=== PATIENT | female | born 1945 | race Caucasian/White ===

== ENCOUNTER 2020-07-15 13:56 | Day surgery (SDC) | payer MEDICARE, OTHER ==
[~2020-07-15 13:56] MED LIST: BALANCED SALT IRRIG SOLN COMB2 15 ML BOTTLE ONE; KETOROLAC TROMETHAMINE 0.45% 4 DROP/0.4 ML DROPERETTE OD PRN; LIDOCAINE 1%/EPINEPHRINE INJ 20 ML VIAL ONE; MITOMYCIN OPH SOLN 0.02% 2 ML OD PRN; POVIDONE-IODINE 5% OPH PREP SOLN 30 ML ONE; TETRACAINE HCL 0.5% OPH SOLN 4 ML ONE; TOBRAMYCIN SULFATE/DEXAMETH OPH OINTMENT 3.5 GM ONE
[2020-07-15] MEDS ORDERED: FENTANYL CITRATE INJ/PF 100 MCG/2 ML AMPUL ONE (14:16)
[2020-07-15] MEDS ORDERED: ONDANSETRON HCL INJ/PF 4 MG/2 ML SDV ONE (14:16)
[2020-07-15] MEDS ORDERED: MIDAZOLAM 2 MG/2 ML INJ ONE (14:16)
[2020-07-15] MEDS: BESIFLOXACIN HCL 0.6% OPH SUSP 5 ML BOTTLE OD PRN ×3 (15:05→16:21)
[2020-07-15] MEDS: TETRACAINE HCL 0.5% OPH SOLN 4 ML OD PRN ×2 (15:28→15:35)
[2020-07-15] MEDS ORDERED: BALANCED SALT IRRIG SOLN COMB2 15 ML BOTTLE ONE (15:38)
[2020-07-15] MEDS ORDERED: LIDOCAINE 1%/EPINEPHRINE INJ 20 ML VIAL ONE (15:41)
--- NOTE | 2020-07-15 16:40 | Operative Report ---
Operative Report-[facility] Operative Report: DATE OF SURGERY: July 15, 2020 PREOPERATIVE DIAGNOSIS: Pterygium, RIGHT EYE. POSTOPERATIVE DIAGNOSIS: Pterygium, RIGHT EYE. PROCEDURE PERFORMED: Pterygium excision of the right eye with mitomycin-C and amniotic membrane graft SURGEON: Nick Moran, MEDICATIONS AND ANESTHESIA: Versed: IV Versed Tetracaine drops: 1 to 2 drops given as needed COMPLICATION: [None] INDICATIONS FOR SURGERY: The pterygium was aggressively approaching the pupillary margin PROCEDURE: Consent: The risks, benefits and alternatives of this procedures was discussed with the patient. The patient read and signed the consent forms, was identified and was seated in the exam chair. The face was prepped with 5% povidone iodine solution, and a few drops of 5% povidone iodine solution was instilled into the inferior fornix. A non- fenestrated drape was placed over the eye and the lids were parted with the speculum. The pterygium was removed, mitomycin C was placed over the bare conjunctive for approximately 2 minutes then irrigated, next an amniotic membrane graft was glued over the bare sclera Postop medication: 1 drop of Besivance followed by TobraDex ointment intraoperative
== END 2020-07-15 16:55 ==
LOC: SC 13:56
PROVIDERS: ATTEND Ophthalmology
DX: H11.001 Unspecified pterygium of right eye (principal); I10 Essential (primary) hypertension; E78.00 Pure hypercholesterolemia, unspecified; E07.9 Disorder of thyroid, unspecified; R01.1 Cardiac murmur, unspecified
CPT/HCPCS: 65426; J2250; J3490 ×4; A9270 ×2; J3010; J2405; J9280; 88304; C9250

== ENCOUNTER 2020-07-22 13:17 | Day surgery (SDC) | payer MEDICARE, OTHER ==
[~2020-07-22 13:17] MED LIST changes: -KETOROLAC TROMETHAMINE 0.45% 4 DROP/0.4 ML DROPERETTE OD PRN; +KETOROLAC TROMETHAMINE 0.45% 4 DROP/0.4 ML DROPERETTE OS PRN; -MITOMYCIN OPH SOLN 0.02% 2 ML OD PRN; +MITOMYCIN OPH SOLN 0.02% 2 ML OP PRN; -TETRACAINE HCL 0.5% OPH SOLN 4 ML ONE; +TETRACAINE HCL 0.5% OPH SOLN 4 ML OS PRN
[2020-07-22] MEDS ORDERED: MIDAZOLAM 2 MG/2 ML INJ ONE (13:25)
[2020-07-22] MEDS ORDERED: FENTANYL CITRATE INJ/PF 100 MCG/2 ML AMPUL ONE (13:25)
[2020-07-22] MEDS ORDERED: ONDANSETRON HCL INJ/PF 4 MG/2 ML SDV ONE (13:25)
[2020-07-22] MEDS: BESIFLOXACIN HCL 0.6% OPH SUSP 5 ML BOTTLE OS PRN ×3 (14:00→15:10)
[2020-07-22] MEDS ORDERED: BALANCED SALT IRRIG SOLN COMB2 15 ML BOTTLE ONE (14:08)
[2020-07-22] MEDS: TETRACAINE HCL 0.5% OPH SOLN 4 ML ONE ×2 (14:30→14:39)
[2020-07-22] MEDS ORDERED: TOBRAMYCIN SULFATE/DEXAMETH OPH OINTMENT 3.5 GM ONE (15:16)
--- NOTE | 2020-07-22 15:25 | Operative Report ---
Operative Report-[facility] Operative Report: DATE OF SURGERY: July 22, 2020 PREOPERATIVE DIAGNOSIS: Pterygium, LEFT EYE. POSTOPERATIVE DIAGNOSIS: Kellen M, LEFT EYE. PROCEDURE PERFORMED: Excision of pterygium and amniotic membrane transplant, LEFT EYE. SURGEON: Nick Moran, MEDICATIONS AND ANESTHESIA: Versed: IV Versed Tetracaine drops: 1 to 2 drops given as needed COMPLICATION: [None] INDICATIONS FOR SURGERY: The pterygium was in the visual axis PROCEDURE: Consent: The risks, benefits and alternatives of this procedures was discussed with the patient. The patient read and signed the consent forms, was identified and was seated in the exam chair. Phacoemulsification with posterior chamber intraocular lens implant: The face w as prepped with 5% povidone iodine solution, and a few drops of 5% povidone iodine solution was instilled into the inferior fornix. A non-fenestrated drape was placed over the eye and the lids were parted with the speculum. The pterygium was used using Kamar scissors and 0.12. hemostasis was achieved with light cautery. Next mitomycin-C was placed for 2 minutes then flushed with BSS. the amniotic membrane graft was cut and placed over the bare sclera and fibrin glue was used to hold it in place. A pressure patch was placed over the eye. Postop medication: 1 drop of Besivance followed by TobraDex ointment
== END 2020-07-22 15:46 ==
LOC: SC 13:17
PROVIDERS: ATTEND Ophthalmology
DX: H11.002 Unspecified pterygium of left eye (principal); Z98.890 Other specified postprocedural states; I10 Essential (primary) hypertension; E78.00 Pure hypercholesterolemia, unspecified; E03.9 Hypothyroidism, unspecified; Z79.899 Other long term (current) drug therapy; Z03.818 Encounter for observation for suspected exposure to other biological agents ruled out
CPT/HCPCS: 65426; U0003; J2250; J3490 ×4; A9270 ×2; J3010; J2405; J9280; C9803; 87635; 88305; C9250

== ENCOUNTER 2020-08-26 09:46 | Day surgery (SDC) | payer MEDICARE ==
[~2020-08-26 09:46] MED LIST changes: -BALANCED SALT IRRIG SOLN COMB2 15 ML BOTTLE ONE; +CHONDR SU A NA/HYALUR INTRAOC KIT (SURGICARE) ONE; +EPINEPHRINE INJ/PF 1 MG/1 ML AMPULE ONE; -LIDOCAINE 1%/EPINEPHRINE INJ 20 ML VIAL ONE; +LIDOCAINE 1%/PHENYLEPHRINE 1.5% 1 ML VIAL ONE; -MITOMYCIN OPH SOLN 0.02% 2 ML OP PRN; -POVIDONE-IODINE 5% OPH PREP SOLN 30 ML ONE; -TETRACAINE HCL 0.5% OPH SOLN 4 ML OS PRN; -TOBRAMYCIN SULFATE/DEXAMETH OPH OINTMENT 3.5 GM ONE
[2020-08-26] MEDS ORDERED: ONDANSETRON HCL INJ/PF 4 MG/2 ML SDV ONE (10:19)
[2020-08-26] MEDS ORDERED: MIDAZOLAM 2 MG/2 ML INJ ONE (10:19)
[2020-08-26] MEDS ORDERED: FENTANYL CITRATE INJ/PF 100 MCG/2 ML AMPUL ONE (10:20)
[2020-08-26] MEDS: CYCLOPENTOLATE 0.2%/PHENYLEPHRINE 1% OPH SOLN 2 ML OS PRN ×3 (10:38→10:58)
[2020-08-26] MEDS: TETRACAINE HCL 0.5% OPH SOLN 4 ML OS PRN ×3 (10:38→12:01)
[2020-08-26] MEDS: TROPICAMIDE 1% OPH SOLN 15 ML OS PRN ×3 (10:38→10:58)
[2020-08-26] MEDS: BESIFLOXACIN HCL 0.6% OPH SUSP 5 ML BOTTLE OS PRN ×4 (10:38→12:17)
[2020-08-26] MEDS: PREDNISOLONE ACETATE 1% OPH SUSP 5 ML OS PRN ×2 (12:11→12:17)
[2020-08-26] MEDS: DORZOLAMIDE HCL 2%/TIMOLOL MALEAT 0.5% OPH SOLN 10 ML OS PRN ×2 (12:11→12:17)
--- NOTE | 2020-08-26 16:21 | Operative Report ---
Operative Report-[facility] Operative Report: DATE OF SURGERY: August 26, 2020 PREOPERATIVE DIAGNOSIS: NUCLEAR CATARACT, LEFT EYE. POSTOPERATIVE DIAGNOSIS: NUCLEAR CATARACT, LEFT EYE. PROCEDURE PERFORMED: PHACOEMULSIFICATION WITH POSTERIOR CHAMBER INTRAOCULAR LENS IMPLANT, LEFT EYE. SURGEON: Nick Moran DO MEDICATIONS AND ANESTHESIA: Versed: IV Versed Tetracaine drops: 1 to 2 drops given as needed COMPLICATION: None INDICATIONS FOR SURGERY: Medical necessity: Best corrected visual acuity worse than 20/40 secondary to cataracts with impairment of ability to carry out needs or desired activities, blurred vision, visual distortion, reduced contrast sensitivity and/or glare with association functional impairment and supporting documentation/testing, and cataracts causing symptomatic impairment of visual functions not corrected with tolerable changes in glasses or contact lenses interfering with activities of daily life. PROCEDURE: Consent: The risks, benefits and alternatives of this procedures was discussed with the patient. The patient read and signed the consent forms, was identified and was seated in the exam chair. IOL: MX 60 E 22.5 IOL Diopters: Phacoemulsification with posterior chamber intraocular lens implant: The face was prepped with 5% povidone iodine solution, and a few drops of 5% povidone iodine solution was instilled into the inferior fornix. A non-fenestrated drape was placed over the eye and the lids were parted with the speculum. A paracentesis was made with a 15 degree blade, and 1% lidocaine MPF followed by viscoelastic was injected into the anterior chamber. A 2.4 mm metal micro- keratome was used to create a temporal clear corneal incision. A circular anterior capsulorrhexis was created, followed by hydro-dissection and hydro- delineation. The phacoemulsification hand piece was inserted and the nucleus was removed with the Phaco chop technique. The irrigation-aspiration hand piece was used to remove the residual cortex, and vacuum the posterior capsule. The capsular bag was inflated and viscoelastic and the above-mentioned IOL was injected into the eye with care to insert both leaning and trailing haptics in the capsular bag. The irrigation/aspiration hand piece was reinserted to remove residual viscoelastic from the capsular bag and anterior chamber. The corneal incision was hydrated, and anterior chamber was inflated with sterile BSS via the paracentesis site, and found to be watertight. Postop medication:1 drop of prednisolone into operative by followed by 1 drop of Cosopt into operative eye followed by 1 drop of Besivance intraoperative by Other:
== END 2020-08-26 12:54 | disposition home or self-care (01) ==
LOC: SC 09:46
PROVIDERS: ATTEND Ophthalmology
DX: H25.12 Age-related nuclear cataract, left eye (principal); Z98.890 Other specified postprocedural states; I10 Essential (primary) hypertension; E78.00 Pure hypercholesterolemia, unspecified; E07.9 Disorder of thyroid, unspecified; Z79.899 Other long term (current) drug therapy
CPT/HCPCS: 66984; V2632; J2250; J3490 ×2; A9270; J0171; 142; J2405; J3010

== ENCOUNTER 2020-09-09 08:55 | Day surgery (SDC) | payer MEDICARE ==
[~2020-09-09 08:55] MED LIST changes: +DORZOLAMIDE HCL 2%/TIMOLOL MALEAT 0.5% OPH SOLN 10 ML OD PRN; +FENTANYL CITRATE INJ/PF 100 MCG/2 ML AMPUL ONE; +KETOROLAC TROMETHAMINE 0.45% 4 DROP/0.4 ML DROPERETTE OD PRN; -KETOROLAC TROMETHAMINE 0.45% 4 DROP/0.4 ML DROPERETTE OS PRN; +MIDAZOLAM 2 MG/2 ML INJ ONE; +PREDNISOLONE ACETATE 1% OPH SUSP 5 ML OD PRN
[2020-09-09] MEDS: TETRACAINE HCL 0.5% OPH SOLN 4 ML OD PRN ×3 (09:15→11:26)
[2020-09-09] MEDS: CYCLOPENTOLATE 0.2%/PHENYLEPHRINE 1% OPH SOLN 2 ML OD PRN ×3 (09:16→09:34)
[2020-09-09] MEDS: TROPICAMIDE 1% OPH SOLN 15 ML OD PRN ×3 (09:16→09:34)
[2020-09-09] MEDS: BESIFLOXACIN HCL 0.6% OPH SUSP 5 ML BOTTLE OD PRN ×3 (09:16→10:12)
[2020-09-09] MEDS ORDERED: MIDAZOLAM 2 MG/2 ML INJ ONE (09:32)
[2020-09-09] MEDS ORDERED: FENTANYL CITRATE INJ/PF 100 MCG/2 ML AMPUL ONE (09:32)
[2020-09-09] MEDS ORDERED: ONDANSETRON HCL INJ/PF 4 MG/2 ML SDV ONE (09:32)
--- NOTE | 2020-09-09 16:05 | Operative Report ---
Operative Report-[facility] Operative Report: DATE OF SURGERY: September 09, 2020 PREOPERATIVE DIAGNOSIS: NUCLEAR CATARACT, RIGHT EYE. POSTOPERATIVE DIAGNOSIS: NUCLEAR CATARACT, RIGHT EYE. PROCEDURE PERFORMED: PHACOEMULSIFICATION WITH POSTERIOR CHAMBER INTRAOCULAR LENS IMPLANT, RIGHT EYE. SURGEON: Nick Moran DO MEDICATIONS AND ANESTHESIA: Versed: IV Versed Tetracaine drops: 1 to 2 drops given as needed COMPLICATION: None INDICATIONS FOR SURGERY: Medical necessity: Best corrected visual acuity worse than 20/40 secondary to cataracts with impairment of ability to carry out needs or desired activities, blurred vision, visual distortion, reduced contrast sensitivity and/or glare with association functional impairment and supporting documentation/testing, and cataracts causing symptomatic impairment of visual functions not corrected with tolerable changes in glasses or contact lenses interfering with activities of daily life. PROCEDURE: Consent: The risks, benefits and alternatives of this procedures was discussed with the patient. The patient read and signed the consent forms, was identified and was seated in the exam chair. IOL: MX 60 E 20.0 IOL Diopters: Phacoemulsification with posterior chamber intraocular lens implant: The face was prepped with 5% povidone iodine solution, and a few drops of 5% povidone iodine solution was instilled into the inferior fornix. A non-fenestrated drape was placed over the eye and the lids were parted with the speculum. A paracentesis was made with a 15 degree blade, and 1% lidocaine MPF followed by viscoelastic was injected into the anterior chamber. A 2.4 mm metal micro- keratome was used to create a temporal clear corneal incision. A circular anterior capsulorrhexis was created, followed by hydro-dissection and hydro- delineation. The phacoemulsification hand piece was inserted and the nucleus was removed with the Phaco chop technique. The irrigation-aspiration hand piece was used to remove the residual cortex, and vacuum the posterior capsule. The capsular bag was inflated and viscoelastic and the above-mentioned IOL was injected into the eye with care to insert both leaning and trailing haptics in the capsular bag. The irrigation/aspiration hand piece was reinserted to remove residual viscoelastic from the capsular bag and anterior chamber. The corneal incision was hydrated, and anterior chamber was inflated with sterile BSS via the paracentesis site, and found to be watertight. Postop medication: 1 drop of prednisolone into operative by followed by 1 drop of Cosopt into operative eye followed by 1 drop of Besivance intraoperative by other:
== END 2020-09-09 10:46 | disposition home or self-care (01) ==
LOC: SC 08:55
PROVIDERS: ATTEND Ophthalmology
DX: H25.11 Age-related nuclear cataract, right eye (principal); Z98.42 Cataract extraction status, left eye; I10 Essential (primary) hypertension; E78.00 Pure hypercholesterolemia, unspecified; E03.9 Hypothyroidism, unspecified; E66.01 Morbid (severe) obesity due to excess calories
CPT/HCPCS: 66984; V2632; J2250; J3490 ×2; A9270; J0171; J3010; J2405